=== PATIENT | female | born 1945 ===

== ENCOUNTER 2022-06-21 12:41 | Inpatient (IN) | payer MEDICARE ==
[2022-06-21] MEDS ORDERED: Non-Formulary Medication 1 Each (Nicotine Polacrilex [Nicotine Lozenge] 2 MG Lozenge) PO PRN (16:51)
[2022-06-21] MEDS: Ipratropium 0.02% 0.5 MG/2.5 ML Neb Soln INH SCH (20:53)
[2022-06-22] MEDS: Ipratropium 0.02% 0.5 MG/2.5 ML Neb Soln INH SCH ×4 (06:29→20:16)
[2022-06-22] MEDS ORDERED: Non-Formulary Medication 1 Each (Umeclidinium Bromide [Incruse Ellipta*] 62.5 MCG Blst.W.D PO SCH (09:00)
[2022-06-22] MEDS: Losartan 50 MG Tab PO SCH (09:52)
[2022-06-22] MEDS: atorvaSTATin 40 MG Tab PO SCH (09:52)
[2022-06-22] MEDS: Aspirin 325 MG Tab.EC PO SCH (09:52)
[2022-06-22] MEDS: Nicotine 21 MG/24 Hr Patch TOP SCH (09:53)
[2022-06-23] MEDS: Ipratropium 0.02% 0.5 MG/2.5 ML Neb Soln INH SCH ×4 (06:21→21:19)
[2022-06-23] MEDS: Aspirin 325 MG Tab.EC PO SCH (09:33)
[2022-06-23] MEDS: Losartan 50 MG Tab PO SCH (09:33)
[2022-06-23] MEDS: Nicotine 21 MG/24 Hr Patch TOP SCH (09:33)
[2022-06-23] MEDS: atorvaSTATin 40 MG Tab PO SCH (09:33)
[2022-06-24] MEDS: Nicotine 21 MG/24 Hr Patch TOP SCH (09:17)
[2022-06-24] MEDS: Aspirin 325 MG Tab.EC PO SCH (09:19)
[2022-06-24] MEDS: Losartan 50 MG Tab PO SCH (09:19)
[2022-06-24] MEDS: atorvaSTATin 40 MG Tab PO SCH (09:19)
[2022-06-24] MEDS: Ipratropium 0.02% 0.5 MG/2.5 ML Neb Soln INH SCH ×4 (13:49→20:07)
[2022-06-25] MEDS: Ipratropium 0.02% 0.5 MG/2.5 ML Neb Soln INH SCH ×2 (07:30→10:58)
[2022-06-25] MEDS: Nicotine 21 MG/24 Hr Patch TOP SCH (08:54)
[2022-06-25] MEDS: atorvaSTATin 40 MG Tab PO SCH (08:55)
[2022-06-25] MEDS: Aspirin 325 MG Tab.EC PO SCH (08:55)
[2022-06-25] MEDS: Losartan 50 MG Tab PO SCH (08:55)
[2022-06-25] MEDS: Tiotropium Bromide 4 GM Inhalation Spray (2.5mcg/1 dose; 10 doses) INH SCH (13:50)
[2022-06-26] MEDS: Nicotine 21 MG/24 Hr Patch TOP SCH (09:35)
[2022-06-26] MEDS: Losartan 50 MG Tab PO SCH (09:36)
[2022-06-26] MEDS: Aspirin 325 MG Tab.EC PO SCH (09:36)
[2022-06-26] MEDS: atorvaSTATin 40 MG Tab PO SCH (09:37)
[2022-06-26] MEDS: Tiotropium Bromide 4 GM Inhalation Spray (2.5mcg/1 dose; 10 doses) INH SCH (09:39)
[2022-06-26] MEDS ORDERED: Pneumococcal 20-Valent Conjug 0.5 ML Syringe IM ONE (13:00)
[2022-06-26] MEDS ORDERED: Diphtheria,Pertussis(Acell),Tetanus Vaccine 0.5 ML Syringe IM ONE (13:00)
[2022-06-27] MEDS: atorvaSTATin 40 MG Tab PO SCH (09:23)
[2022-06-27] MEDS: Aspirin 325 MG Tab.EC PO SCH (09:23)
[2022-06-27] MEDS: Losartan 50 MG Tab PO SCH (09:23)
[2022-06-27] MEDS: Nicotine 21 MG/24 Hr Patch TOP SCH (09:24)
[2022-06-27] MEDS: Tiotropium Bromide 4 GM Inhalation Spray (2.5mcg/1 dose; 10 doses) INH SCH (09:27)
[2022-06-28] MEDS: Aspirin 325 MG Tab.EC PO SCH (09:01)
[2022-06-28] MEDS: Nicotine 21 MG/24 Hr Patch TOP SCH (09:01)
[2022-06-28] MEDS: atorvaSTATin 40 MG Tab PO SCH (09:01)
[2022-06-28] MEDS: Losartan 50 MG Tab PO SCH (09:01)
[2022-06-28] MEDS: Tiotropium Bromide 4 GM Inhalation Spray (2.5mcg/1 dose; 10 doses) INH SCH (09:02)
== END 2022-06-28 12:53 | disposition home health service (06) | DRG 57 ==
LOC: VM.MS 12:48
PROVIDERS: ADMIT Internal Medicine; ATTEND Internal Medicine
DX: I69.320 Aphasia following cerebral infarction (principal); I10 Essential (primary) hypertension; F17.210 Nicotine dependence, cigarettes, uncomplicated; R77.8 Other specified abnormalities of plasma proteins; E66.9 Obesity, unspecified; E78.5 Hyperlipidemia, unspecified; J44.9 Chronic obstructive pulmonary disease, unspecified; Z96.649 Presence of unspecified artificial hip joint; Z85.51 Personal history of malignant neoplasm of bladder; Z79.899 Other long term (current) drug therapy; E04.2 Nontoxic multinodular goiter
CPT/HCPCS: 90677; 90715; 92523-GN; 94640; 95851-GO; 97112-GP; 97116-GP; 97162-GP; 97165-GO; 97535-GO; A9270-GY; J3490